=== PATIENT | male | born 1945 ===

== ENCOUNTER 2016-10-15 20:43 | Emergency (ER) | payer MEDICARE, OTHER ==
[~2016-10-15] VITALS: Ht 170.2 cm; Wt 99.7 kg
--- NOTE | 2016-10-15 21:13 | NUR ---
EMS states that Pt was unable to talk while in home. Pt now able to talk, still complains of some mild tongue swelling.
[2016-10-15] MEDS ORDERED: methylPREDNISolone 125 MG (Solu-MEDROL) VIAL IV ONE (21:15)
[2016-10-15] MEDS ORDERED: diphenhydrAMINE 50 MG (BENADRYL) CAPSULE PO ONE (21:15)
[2016-10-15 23:40] VITALS: BP 171/79
[2016-10-15] MEDS ORDERED: SODIUM CHLORIDE FLUSH 3 ML SYR IV PRN (23:45)
[2016-10-15] MEDS ORDERED: SODIUM CHLORIDE FLUSH 10 ML SYR IV PRN (23:45)
== END 2016-10-15 22:27 | disposition home or self-care (01) ==
LOC: ED 20:44
DX: T78.3XXA Angioneurotic edema, initial encounter (principal); T78.40XA Allergy, unspecified, initial encounter; X58.XXXA Exposure to other specified factors, initial encounter
CPT/HCPCS: 96374; 99283; A9270; J2930

== ENCOUNTER → 2016-10-15 | Outpatient (CLI) | payer MEDICARE, OTHER | LOC: EMS 20:40 | PROVIDERS: ATTEND Family Medicine | DX: T78.40XA Allergy, unspecified, initial encounter (principal); X58.XXXA Exposure to other specified factors, initial encounter ==

== ENCOUNTER 2016-11-04 02:44 | Emergency (ER) | payer MEDICARE, OTHER ==
[~2016-11-04] VITALS: Ht 170.2 cm; Wt 110.0 kg
[2016-11-04] MEDS ORDERED: FAMOTIDINE IV 20 MG in SODIUM CHLORIDE VIAL (PF) 10 ML IV ONE (02:55)
[2016-11-04] MEDS ORDERED: diphenhydrAMINE 50 MG/ML INJ (BENADRYL) IV ONE (02:55)
[2016-11-04] MEDS ORDERED: SODIUM CHLORIDE FLUSH 3 ML SYR IV ONE (03:00)
[2016-11-04] MEDS ORDERED: SODIUM CHLORIDE FLUSH 10 ML SYR IV PRN (03:00)
[2016-11-04 04:19] VITALS: BP 100/61
== END 2016-11-04 04:22 | disposition home or self-care (01) ==
LOC: EDBD 02:44 → ED 02:47
DX: R06.00 Dyspnea, unspecified (principal); T78.40XA Allergy, unspecified, initial encounter
CPT/HCPCS: 96374; 96375; 99284; J1200; J3490; J7050; 99282

== ENCOUNTER → 2016-11-04 | Outpatient (CLI) | payer MEDICARE, OTHER | LOC: EMS 03:08 | PROVIDERS: ATTEND Emergency Medicine | DX: T78.40XA Allergy, unspecified, initial encounter (principal); X58.XXXA Exposure to other specified factors, initial encounter ==

== ENCOUNTER → 2016-11-30 | Outpatient (CLI) | payer MEDICARE, OTHER | LOC: RAD 07:45 | PROVIDERS: ATTEND Family Medicine | DX: M54.2 Cervicalgia (principal); M48.02 Spinal stenosis, cervical region; M50.323 Other cervical disc degeneration at C6-C7 level | CPT/HCPCS: 72156; A9579 ==

== ENCOUNTER 2016-12-24 13:45 | Outpatient (RCR) | payer MEDICARE, OTHER ==
[~2016-12-24 13:45] MED LIST: ACET325T38 PO; AMPI500C9 PO; ASCO-262 PO; BABY ASPRIN PO; CHOL100048 PO; CLOP75TA3 PO; DPAS20025 PO; IBUP-15 PO; MECL-105 PO; MELO-249 PO; MELO15TA14 PO; MINO100C2 PO; MULT1TAB PO; OXYB10TA PO; OXYB15TA PO; PRED10TA PO; RIVA10TA2 PO; ROSU10TA PO; SIMV80TA3 PO; SRTR100T PO; ZLP10T PO; doterra
--- NOTE | 2016-12-28 14:01 | PT/OT/ST INITIAL EVALUATION ---
Department of Health and Human Services Form Approved [facility] Care Financing Administration OMB No. [id number] PLAN OF CARE/ASSESSMENT FOR OUTPATIENT REHABILITATION (Complete for Initial Claims Only) 1. PATIENT'S NAME Joaquin Elliott 2. ACC # [id number] [facility]. [id number] 4. PROVIDER NO. [id number] 5. TYPE: PT 6. PRIOR HOSPITALIZATION NA 7. PRIMARY DX Cervical spine pain 8. SECONDARY DX NA 9. ONSET DATE A couple of months ago 10. REFERRAL DATE 12/14/2016 11. SOC. DATE 12/20/2016 12. TIME OF EVAL 1345 12. RE[address] PHYS[address]IAN [address]. Luis Alonso 13. CHARGES/UNITS Evaluation code 60577 1 unit of manual therapy 04056 2 units of therapeutic exercise 86168 14. G CODES [id number] Goal C0281-[id number] 15. PRIOR LEVEL OF FUNCTION; PERTINENT HISTORY (Prior therapy results, reason for referral.) S: Prior to therapy, the patient consented to today's evaluation and treatment. The patient is a 71-year-old male referred to therapy by Dr. Luis Alonso to address cervical spine pain. The patient has an extensive history of neck pain, undergoing 2 cervical spine surgeries in the past. The patient notes over the past couple of months he has had progressive headaches, experienced nearly every day in the frontal region of his skull. The patient does report the pain is constant with some pain into his shoulder blades as well as numbness down his right upper extremity. Prior level of function: Prior to the onset of pain, the patient was able to complete all activities of daily living. 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 Current level of function: The patient has had to adjust his television secondary to neck pain. He still reports being able to complete daily tasks, but is in constant pain with doing these activities. The patient also notes sleep interruption due to pain and he is unable to sleep on his right side. Therapy History: The patient has not had any therapy this year for this issue. Obstacles to delivery of care: The patient does have extensive neck pain history undergoing 2 surgical surgeries already, which may affect his progress in physical therapy. Pain level: Current pain level is 6/10. Maximum pain level is greater than 6/10. The patient continues to report a sharp pain that radiates up his neck into his occiput and frontal bone regions. Aggravating factors: The pain is exacerbated by extending or flexing his spine in the cervical region. Relieving factors: It is relieved by using essential oils and Tylenol. Diagnostic testing: The patient recently underwent an MRI, which per the impression showed significant degenerative changes throughout the cervical spine and an anterolisthesis at C7-T1. Past medical history: The patient reports he has undergone 26 surgeries in his lifetime, including the 2 previous cervical spine surgeries and a lumbar spine surgery in 2008. He also has undergone a CABG and stent placement, left total knee arthroplasty, prior head injury, and has received cortisone injections in both shoulders. The patient's additional medical history includes hand and elbow surgery, bilateral shoulder surgeries, a balloon surgery in his neck to open up arteries, and gallbladder surgery. The patient also reports having hypertension and arthritis. Current medications: The patient is taking a statin and Tylenol, however, a full medication list is not provided. Activity level: Reported as active. Personal health rating: Reported as good. Patient's Goal: The patient's goal for physical therapy is to get some relief of neck pain. 16. INITIAL ASSESSMENT/SAFETY PRECAUTIONS/MEDICAL COMPLICATIONS (Level of function at start of care. Be specific, use objective measures, list problems.) O: APPEARANCE AND OBSERVATION: Observation of the patient's posture reveals decreased thoracic kyphosis, increased cervical lordosis greatest at C6 through T1. The patient does have a pocket of fluid around the C6 through T1 level. The patient has mild scapular winging and scapular abduction bilaterally. PALPATION: Significant tenderness to palpation and muscle tightness in the cervical paraspinals, sternocleidomastoid, and bilateral thoracic paraspinals. SPECIAL TESTS: Positive upper limb tension test with a median bias on the left, ulnar nerve positive on the right. The Bong and Mior cervical spine questionnaire was a 20% disability. The physical therapist did not perform any other cervical spine special tests secondary to the patient's extensive degenerative changes noted on the MRI. RANGE OF MOTION/FLEXIBILITY: Right cervical rotation is 50 degrees and painful, left is 37 degrees and painful. Cervical flexion 41 degrees, cervical extension 27 degrees with pain reported in the right ear and along the sternocleidomastoid. The patient is able to complete shoulder flexion throughout a full range of motion bilaterally. Shoulder abduction is limited to approximately 100% bilaterally. Internal rotation to L5-S1 bilaterally. External rotation to T1 bilaterally. STRENGTH: Right shoulder flexion 4+/5 and painful, left 5/5. Shoulder abduction on the right 3+5 and painful, left 4/5. Shoulder internal rotation bilaterally 4/5. External rotation 4/5 bilaterally. TODAY'S TREATMENT: Today's treatment consisted of educating the patient and his , who is present during the evaluation, on the findings and recommended treatment plan. The physical therapist initiated passive upper extremity nerve glides secondary to significant nerve tension, and educated the patient on deep breathing with completion of scapular retraction and shoulder rolls to improve muscle tightness and begin initiating improved motion throughout the scapular region. The physical therapist also performed manual therapy techniques including muscle bending, deep tissue and soft tissue massage to the bilateral upper traps and upper thoracic paraspinals. 17. INITIAL POC: (Specify procedures, modalities, short and skilled nursing goals) A: The patient presents to physical therapy with chronic neck pain with recent acute exacerbation approximately 2 months ago. The patient does have significant cervical spine limitations in range of motion and upper extremity weakness with resultant pain and poor motor patterns. PROGNOSIS: The patient does have a fair outcome due to his chronic neck and shoulder pain issues. CONTRAINDICATIONS, PRECAUTIONS AND OBSTACLES TO DELIVERY OF CARE: Precautions should include avoiding joint mobilizations throughout the cervical spine secondary to the presence of an anterolisthesis and prior neck surgery. OUTCOME ASSESSMENT: The patient scores a 20% disability on the Bong and Mior cervical spine questionnaire with G code H3966-QT. INFORMED CONSENT: The diagnosis, prognosis, treatment plan, risks and expected outcomes were discussed with this patient and he is agreeable to today's established plan of care. SHORT TERM GOALS X2 WEEKS: 1. The patient will be able to tolerate 10 minutes of exercise without exacerbation of pain. 2. The patient will report compliance with his home exercise program and relaxation techniques. 3. The patient will improve left cervical rotation to be a minimum of 45 degrees to improve functional use of his neck. BUSINESS RISK CONSULTANT GOALS X4 WEEKS: 1. The patient will have headaches with a 25% decrease in frequency. 2. The patient will improve bilateral cervical rotation to be a minimum of 55 degrees. 3. The patient will improve bilateral shoulder internal and external rotation strength to be a minimum of 4+/5. 4. The patient will report current pain level as 4/10 throughout the day. P: Plan to see this patient 3 times a week for 4 weeks in order to address an acute onset of chronic neck pain, significant range of motion limitations and strength deficits in the upper extremities. Treatment will include modalities with caution using ultrasound secondary to the presence of hardware from a prior neck surgery, manual therapy techniques with avoidance of joint mobilization in the cervical spine secondary to presence of anterolisthesis. Therapeutic exercise will include range of motion, strengthening, and neuromuscular reeducation working on proper scapular stabilization and movement patterns. The patient was provided a home exercise program and this will be progressed as needed. Thank you for the referral of this patient. 18. FREQUENCY 3 times a week` 19. DURATION 4 weeks 20. FUNCTIONAL LEVEL (End of claim period) 21. PHYSICIAN SIGNATURE ? ON FILE OR ENTER HERE: 22. DATE: I certify the need for these services furnished under this plan of care and if for partial hospitalization. 23. CERTIFICATION FROM THROUGH FORM [facility]-700
== END 2017-01-18 12:00 | disposition home or self-care (01) ==
LOC: PT 13:45
PROVIDERS: ATTEND Family Medicine
DX: M54.2 Cervicalgia (principal)
CPT/HCPCS: 97110; 97140; 97162; G8984; G8985

== ENCOUNTER → 2016-12-26 | Outpatient (CLI) | payer MEDICARE, OTHER ==
[~2016-12-26] MED LIST changes: +methylPREDNISolone 80 MG/ML (DEPO MEDROL) VIAL IM ONE
--- NOTE | 2016-12-26 11:46 | PAIN MANAGEMENT ---
Date of note: 12/26/2016 Procedure: Epidural steroid injection at C7-T1 This is a 71-year-old patient of Dr. Luis Alonso. The patient presents with a longstanding history of cervicolumbar disk disease. Today he has radicular symptoms in his right arm, dermatome level of C7-C8. Informed consent was achieved for an epidural steroid injection at C7-T1. He has had previous anterior approach x2 per cervical spine. Orders for procedure verified. Patient denies any bleeding tendencies. After informed consent obtained, the patient was positioned for the cervical epidural steroid injection. The area was prepped and draped using aseptic technique. The skin and overlying tissues were localized with 3 mL of 1% Preservative-Free lidocaine using a 25-gauge needle. A 20-gauge Tuohy needle was advanced, using "loss of resistance" technique, to the epidural space. No blood, cerebral spinal fluid, pain, or paresthesia noted on entry of the epidural space. A 1 mL solution of Depo-Medrol 80 mg was injected slowly without mass volume effect. The patient was placed in supine position 15 minutes prior to being released with proper leg strength and vitals. Pre- and post procedure vital signs stable with no sensory or motor deficit noted. Instruction on followup contact and care provided to the patient. He has been off his blood thinner for 7 days and he will resume it tomorrow morning.
== END ==
LOC: PMC 11:03
PROVIDERS: ATTEND Family Medicine
DX: M54.12 Radiculopathy, cervical region (principal)
CPT/HCPCS: 62320; J1040